=== PATIENT | female | born 1990 | race Caucasian/White ===

== ENCOUNTER 2018-10-28 21:53 | Emergency (ER) | payer MEDICAID, OTHER ==
[~2018-10-28] VITALS: Ht 149.9 cm; Wt 106.6 kg
[~2018-10-28 21:53] MED LIST: ACHYD1T PO; AZIT-21 PO; DCS100C PO; IBP800T PO; NITR100C3 PO; PREN1TAB39 PO; SERT25TA PO
[2018-10-28 23:59] LABS: BILIRUBIN,URINE NEGATIVE (NEGATIVE); CLARITY,URINE SLIGHTLY CLOUDY; COLOR,URINE YELLOW; GLUCOSE, URINE (UA) NEGATIVE (NEGATIVE); KETONES,URINE 4+ (NEGATIVE); LEUKOCYTE ESTERASE ,URINE 3+ (NEGATIVE); NITRITE,URINE POSITIVE (NEGATIVE); PH,URINE 5 (5-9); PROTEIN,URINE 1+ (NEGATIVE); UROBILINOGEN,URINE NORMAL (NORMAL)
[2018-10-29 00:05] LABS: BACTERIA,URINE LARGE /HPF; WBC,URINE 25-50 /HPF
[2018-10-29] MEDS ORDERED: RX-NITROFURANTOIN 100 MG (MACROBID) CAP PPK#2 PO STA (00:06)
[2018-10-29] MEDS ORDERED: NITR-65 PO (00:10)
--- NOTE | 2018-10-29 00:10 | ED GU-Female ---
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 PT STATES SHE IS 18 WEEKS . DENIES BLEEDING. DENIES PAINFUL URINATION. STATES PAIN STARTED TODAY. STATES RECENTLY MOVED HERE FROM [place], HAS NOT ESTABLISHED WITH OBGYN. [facility] WAS RECIEVING CARE IN [place]. [facility] RODE BIKE TO WORK TODAY AND YESTERDAY. Nursing Sepsis Screen: No Definite Risk Source: patient History of Present Illness Date Seen by Provider: Oct 28, 2018 Time Seen by Provider: 23:39 Initial Comments PT ARRIVES VIA POV FROM HOME C/O LOWER ABDOMINAL AND LOWER BACK CRAMPING SINCE 1800 TONIGHT--BEGAN WHILE SITTING IN A CLASS WATCHING VIDEOS NO FEVER NO URINARY SYMPTOMS NO NAUSEA/VOMITING PT STATES SHE IS 18 WEEKS NO VAGINAL BLEEDING OR DISCHARGE HAS NOT TAKEN ANYTHING FOR PAIN PT STATES SHE JUST MOVED HERE 2 WEEKS AGO FROM [place], HAS NOT ATTEMPTED TO ESTABLISH WITH LOCAL PORCELAIN TECHNICIAN, BUT STATES SHE IS PLANNING ON GOING TO [facility] PT HAS LIVED IN THIS AREA IN THE PAST. PCP: NONE Allergies and Home Medications Allergies Coded Allergies: Amoxicillin (Verified Allergy, Unknown, 07/18/07) Penicillins (Verified Allergy, Unknown, 07/15/07) Home Medications Docusate Sodium 100 Mg Capsule, 100 MG PO BID, (Reported) Hydrocodone Bit/Acetaminophen 1 Tab Tablet, 1-2 TAB PO Q3H PRN, (Reported) PAIN Ibuprofen 800 Mg Tab, 800 MG PO Q6H PRN, (Reported) CRAMPING Nitrofurantoin Monohyd/M-Cryst 100 Mg Capsule, 100 MG PO BID Prescribed by: ANTON HENSLEY on 10/29/18 0010 Vits W-Ca,Fe,Fa(<1MG) 1 Each Tablet, 1 EACH PO DAILY, (Reported) Patient Home Medication List Home Medication List Reviewed: Yes Review of Systems Review of Systems Constitutional: no symptoms reported Respiratory: no symptoms reported Gastrointestinal: see HPI Genitourinary: see HPI Musculoskeletal: see HPI Skin: no symptoms reported Psychiatric/Neurological: No Symptoms Reported Endocrine: No Symptoms Reported, Other (PT HAS HISTORY OF GESTATIONAL DIABETES AND FAILED HER 2 HOUR GLUCOSE TOLERANCE TEST AT HER OB VISIT IN [place] ON 10/08. PT IS SUPPOSED TO BE CHECKING HER BLOOD SUGARS, BUT HAS NOT BEEN DOING THAT AND HAS NOT BEEN FOLLOWING ANY KIND OF DIET. ) Hematologic/Lymphatic: No Symptoms Reported Past Hdkhadx-Pmbimv-Wqlkcd Hx Patient Social History Alcohol Use: Denies Use Recreational Drug Use: No Smoking Status: Former Smoker (< 1 PPD, QUIT 7 YEARS AGO, PER PT ON 10/28/18) Type Used: Cigarettes Recent Foreign Travel: No Contact w/Someone Who Travel: No Recent Infectious Disease Expo: No Recent Hopitalizations: No Immunizations Up To Date Tetanus Booster (TDap): Unknown PED Vaccines UTD: Yes Date of Influenza Vaccine: Apr 07, 2011 Past Medical History Surgeries: Yes (T&A, D&C IN 08; X 1) Adenoidectomy, Section, Tonsillectomy Respiratory: No Cardiac: No Neurological: No : Yes Hx : 3 Hx Para: 1 Hx Total # of Abortions (Sp): 1 Reproductive Disorders: No Genitourinary: Yes UTI-Chronic Gastrointestinal: No Musculoskeletal: No Endocrine: Yes (GESTATIONAL DIABETES; MORBID OBESITY) HEENT: Yes (S/P TONSILLECTOMY) Tonsilitis Psychosocial: No Integumentary: No Blood Disorders: No Physical Exam Vital Signs Vital Signs - First Documented 10/28/18 22:08 Pulse 103 Resp 20 B/P (MAP) 137/86 (103) Pulse Ox 100 O2 Delivery Room Air Capillary Refill : Less Than 3 Seconds Height, Weight, BMI Height: 4'11.00" Weight: 235lbs. oz. 106.494803ql; BMI Method:Stated General Appearance: no apparent distress, obese, other (SITTING SWAZI-STYLE, PLAYING/TEXTING ON PHONE, IS MALE WITH HER) HEENT: other (NASAL CONGESTION) Neck: normal inspection Cardiovascular: regular rate, rhythm, no murmur Respiratory: normal breath sounds Gastrointestinal: normal bowel sounds, soft, no organomegaly, tenderness ( SUPRAPUBIC TENDERNESS), other (FHT'S 160'S. 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, no motor/sensory deficits, alert, normal mood/affect, oriented x 3 Skin: normal color, warm/dry, tattoos/piercings (MULTIPLE TATTOOS) Progress/Results/Core Measures Suspected Sepsis Recent Fever Within 48 Hours: No Infection Criteria Present: None New/Unexplained Altered Menta: No Sepsis Screen: No Definite Risk SIRS Temperature: Pulse: 103 Respiratory Rate: 20 Blood Pressure 137 /86 Mean: 103 Results/Orders Lab Results Laboratory Tests Test 10/28/18 23:45 10/28/18 23:59 Range/Units Urine Color YELLOW Urine Clarity SLIGHTLY CLOUDY Urine pH 5 5-9 Urine Specific [place] 1.025 H 1.016-1.022 Urine Protein 1+ H NEGATIVE Urine Glucose (UA) NEGATIVE NEGATIVE Urine Ketones 4+ H NEGATIVE Urine Nitrite POSITIVE H NEGATIVE Urine Bilirubin NEGATIVE NEGATIVE Urine Urobilinogen NORMAL NORMAL MG/DL Urine Leukocyte Esterase 3+ H NEGATIVE Urine RBC (Auto) 3+ H NEGATIVE Urine RBC 5-10 H /HPF Urine WBC 25-50 H /HPF Urine Crystals NONE /LPF Urine Bacteria LARGE H /HPF Urine Casts NONE /LPF Urine Mucus NEGATIVE /LPF Urine Culture Indicated YES Glucometer 102 70-110 MG/DL My Orders Orders - ANTON HENSLEY DO Heart Tones (10/28/18 23:39) Ua Culture If Indicated (10/28/18 23:39) Accucheck Stat ONCE (10/28/18 23:55) Urine Culture (10/28/18 23:45) Rx-Nitrofurantoin Placer (Rx-Macrobid) (10/29/18 00:06) Vital Signs/I&O 10/28/18 22:08 Pulse 103 Resp 20 B/P (MAP) 137/86 (103) Pulse Ox 100 O2 Delivery Room Air Capillary Refill : Less Than 3 Seconds Blood Pressure Mean: 103 Point of Care Testing Finger Stick Blood Glucose: 102 Blood Glucose Action Taken: ERP NOTIFIED Departure Impression Primary Impression: UTI (urinary tract infection) in in second trimester Disposition: HOME, SELF-CARE Condition: Stable Departure-Patient Inst. Referrals: NO,LOCAL PHYSICIAN (PCP) Primary Care Physician [facility] Patient Instructions: Avoiding Infections in , Urinary Tract Infection , Adult (DC) Add. Discharge Instructions: LOTS OF CLEAR LIQUIDS--NO COFFEE, POP OR TEA TYLENOL NEEDED FOR PAIN FOLLOW UP WITH [facility] THIS WEEK FOR FURTHER CARE All discharge instructions reviewed with patient and/or family. Voiced understanding. Scripts Nitrofurantoin Monohyd/M-Cryst (Macrobid 100 mg Capsule) 100 Mg Capsule 100 MG PO BID, #20 CAP Prov: ANTON HENSLEY DO 10/29/18 ANTON HENSLEY DO Oct 29, 2018 00:10
[2018-10-29 00:14] VITALS: BP 132/81
--- OUTSIDE RECORDS SUMMARY | 2018-10-29 01:09 | XMS REPORT | Continuity of Care Document ---
Author Organization Unknown Address Unknown Allergies Active Description Code Type Severity Reaction Onset Reported/Identified Relationship to Patient Clinical Status Yes amoxicillin Drug Allergy 12/14/2009 Yes Penicillins Drug Allergy 12/14/2009 Medications There is no data. Problems Date Dx Coded Attending Type Code Diagnosis Diagnosed By 12/14/2009 LARISSA KRUSE APRN 795.02 ASCUS-H PAP 12/26/2009 LARISSA KRUSE APRN V05.8 GARDASIL 07/30/2012 LARISSA KRUSE APRN 478.19 nasal passage blockage (stuffiness) Procedures There is no data. Results There is no data. Encounters ACCT No. Visit Date/Time Discharge Status Pt. Type Provider Facility Loc./Unit Complaint [id number] 07/30/2012 15:10:00 07/30/2012 23:59:59 CLS Outpatient LARISSA KRUSE APRN [id number] 07/30/2012 17:01:54 RECURRING
== END 2018-10-29 00:14 | disposition home or self-care (01) ==
LOC: EDUNIT# 21:53 → ER 21:54
DX: O23.42 Unspecified infection of urinary tract in pregnancy, second trimester (principal); O99.212 Obesity complicating pregnancy, second trimester; E66.01 Morbid (severe) obesity due to excess calories; Z88.0 Allergy status to penicillin; Z3A.19 19 weeks gestation of pregnancy; Z87.891 Personal history of nicotine dependence; Z90.89 Acquired absence of other organs; Z98.890 Other specified postprocedural states; Z87.440 Personal history of urinary (tract) infections
CPT/HCPCS: 81000; 82962; 87077; 87088; 87186

== ENCOUNTER 2019-01-16 18:29 | Inpatient (IN) | payer MEDICAID | END 2019-01-19 14:50 | disposition home or self-care (01) | LOC: WSo 18:29 → ICU 01-17 11:15 → LDRP 18:29 → WSo 21:33 → LDRP 21:33 ==